=== PATIENT | female | born 1985 | race American Indian/Alaskan Native ===

== ENCOUNTER 2017-12-23 18:06 | Emergency (ER) | payer OTHER ==
[2017-12-23 18:24] VITALS: BP 120/78; PULSE 86; TEMP 98.6; BMI 38.2
--- NOTE | 2017-12-23 18:25 | PDOC ---
Rapid Medical Evaluation Chief Complaint: Palpitations Time Seen by Provider: 12/23/17 18:19 Medical Evaluation: Allergies Allergy/AdvReac Type Severity Reaction Status Date / Time Penicillins AdvReac Vomiting Verified 05/05/15 18:49 12/23/17 18:19 I have performed a brief in-person evaluation of this patient. The patient presents with a chief complaint of: palpitations since this am with URI/ cough, yellow/ green phlegm x 2 weeks, leg heaviness. Was seen at [facility] with orders for labs but did not complete labs, instead came to ER Pertinent physical exam findings: coarse insp exp I have ordered the following: EKG, CBC, CMP, T3, TSHUA, UCg, The patient will proceed to the ED for further evaluation. Discharge Disposition - Diagnosis Palpitations - Referrals - Patient Instructions - Post Discharge Activity
[2017-12-23 19:13] LABS: URINE APPEARANCE CLEAR; URINE BILIRUBIN NEGATIVE (<2.0 mg/dL); URINE COLOR COLORLESS; URINE GLUCOSE (UA) NEGATIVE (NEGATIVE); URINE KETONE NEGATIVE (NEGATIVE); URINE LEUK ESTERASE NEGATIVE (NEGATIVE); URINE NITRITE NEGATIVE (NEGATIVE); URINE PROTEIN NEGATIVE (NEGATIVE); URINE UROBILINOGEN NEGATIVE mg/dL (0.2-1.0)
[2017-12-23 19:27] LABS: BASO % 0.5 % (0-2.0); EOS % 0.7 % (0-4.5); HEMOGLOBIN 13.8 GM/dL (10.7-15.3); LYMPH % 24.6 % (8-40); MCH 26.6 pg (25.7-33.7); MEAN CELL VOLUME 80.8 fl (80-96); MEAN PLT VOLUME 8.7 fl (7.5-11.1); MONO % 5.3 % (3.8-10.2); NEUT % 68.9 % (42.8-82.8); PLATELET COUNT 344 K/MM3 (134-434); RDW 13.7 % (11.6-15.6); WHITE BLOOD COUNT 14.5 K/mm3 (4.0-10.0)
--- NOTE | 2017-12-23 19:28 | PDOC ---
History of Present Illness - General Chief Complaint: Palpitations Stated Complaint: PALPITATIONS,CARLITO HAND & LEG NUMBESS Time Seen by Provider: 12/23/17 18:19 - History of Present Illness Initial Comments: 12/23/17 19:27 32-year-old female without comorbidities presents for evaluations of 4 days of palpitations. Seen by her primary care physician today, blood work is ordered however she did not complete the blood work she reports to the ER for further evaluation and treatment of her palpitations Past History - Past Medical History Allergies/Adverse Reactions: Allergies Allergy/AdvReac Type Severity Reaction Status Date / Time Penicillins AdvReac Vomiting Verified 12/23/17 18:20 Home Medications: Ambulatory Orders NK [No Known Home Medication] 12/23/17 Asthma: No Cancer: No Cardiac Disorders: No COPD: No Diabetes: No HTN: No Seizures: No Thyroid Disease: No - Suicide/Smoking/Psychosocial Hx Smoking History: Never smoked Have you smoked in the past 12 months: No Hx Alcohol Use: No Drug/Substance Use Hx: No Substance Use Type: None Hx Substance Use Treatment: No Review of Systems - Review of Systems Cardiac (ROS): Yes: Palpitations. No: Chest Pain *Physical Exam - Vital Signs Last Vital Signs Temp Pulse Resp BP Pulse Ox 98.6 F 86 16 120/78 100 12/23/17 18:21 12/23/17 18:21 12/23/17 18:21 12/23/17 18:21 12/23/17 18:21 - Physical Exam Comments: 12/23/17 19:27 HEAD: NC/AT EYES: Conjuntiva clear Ears: Canals and TM's normal NOSE: No d/c THROAT: Moist mucous membrances, oral pharanx clear, uvula midline NECK: Supple without adenopathy CARDIAC: S1 S2 LUNGS: CTA Full and Equal breath sounds ABDOMEN: Soft NT ND MS: Full ROM in all joints without edema NEUROLOGIC: No gross sensory or motor deficits, NVID SKIN: Normal color and temperature no lesions or rashes ED Treatment Course - LABORATORY CBC & Chemistry Diagram: 12/23/17 19:15 12/23/17 19:15 - ADDITIONAL ORDERS Additional order review: Laboratory Results 12/23/17 12/23/17 18:40 18:40 Urine Color Colorless Urine Appearance Clear Urine pH 6.0 Ur Specific [place] 1.001 L Urine Protein Negative Urine Glucose (UA) Negative Urine Ketones Negative Urine Blood 1+ H Urine Nitrite Negative Urine Bilirubin Negative Urine Urobilinogen Negative Ur Leukocyte Esterase Negative Urine WBC (Auto) <1 Urine RBC (Auto) 1 Urine HCG, Qual Negative Medical Decision Making - Medical Decision Making 12/23/17 19:27 EKG is normal, thyroid panel CBC and chemistry was ordered I will transfer to the main emergency room for further evaluation and treatment *DC/Admit/Observation/Transfer Diagnosis at time of Disposition: Palpitations - Referrals Referrals: Deyanira Marie DO [Primary Care Provider] - - Patient Instructions - Post Discharge Activity
[2017-12-23 19:51] LABS: ALBUMIN 4.1 g/dl (3.4-5.0); ALK PHOS 105 U/L (45-117); ANION GAP 9 MMOL/L (8-16); BILIRUBIN,TOTAL 0.2 mg/dL (0.2-1); BLOOD UREA NITROGEN 10 mg/dL (7-18); CHLORIDE 106 mmol/L (98-107); CO2 25 mmol/L (21-32); CREATININE 0.6 mg/dL (0.55-1.3); GLUCOSE,RANDOM 95 mg/dL (74-106); POTASSIUM 3.8 mmol/L (3.5-5.1); SGOT/AST 15 U/L (15-37); SGPT/ALT 23 U/L (13-61); SODIUM 140 mmol/L (136-145); TOT PROT 8.1 g/dl (6.4-8.2)
--- NOTE | 2017-12-23 19:52 | PDOC ---
History of Present Illness - History of Present Illness Initial Comments: 12/23/17 20:10 The patient is a 32 year old female, with a significant PMH of HLD who presents to the emergency department with leg heaviness and palpitations for the past two days. Patient describes the leg heaviness as localized from her bilateral knees to her thighs with associated numbness that is exacerbated with sitting down. Patient denies any urinary incontinence or back trauma. Patient admits to having an 18 [address] ride to [place] 2 weeks ago. Patient reports the palpitations worsened this morning and notices alleviation of her palpitations after drinking water. Patient also had a subjective feeling like she was going to pass out. Patient has been taking Tylenol for her symptoms with no relief. Patient saw her PCP today. Patient has an IUD in place, but is not on any other control. Patient has no cardiac history in her family. Patient reports recent cold 2 weeks ago. Patient is endorsing decreased appetite and diarrhea. The patient denies chest pain, shortness of breath, headache and dizziness. Denies fever, chills, nausea, vomit, and constipation. Denies dysuria, frequency, urgency and hematuria. Allergies: NKA Past surgical history: 2 c-sections Social history: No reported PCP: <Zehra Quarles - Last Filed: 12/23/17 20:18> - General History Source: Patient Exam Limitations: No Limitations <Elaine Garzon - Last Filed: 12/23/17 22:32> - General Chief Complaint: Palpitations Stated Complaint: PALPITATIONS,CARLITO HAND & LEG NUMBESS Time Seen by Provider: 12/23/17 18:19 Past History <Zehra Quarles - Last Filed: 12/23/17 20:18> - Past Medical History Asthma: No Cancer: No Cardiac Disorders: No COPD: No Diabetes: No HTN: No Seizures: No Thyroid Disease: No - Suicide/Smoking/Psychosocial Hx Smoking History: Never smoked Have you smoked in the past 12 months: No Hx Alcohol Use: No Drug/Substance Use Hx: No Substance Use Type: None Hx Substance Use Treatment: No <Elaine Garzon - Last Filed: 12/23/17 22:32> - Past Medical History Allergies/Adverse Reactions: Allergies Allergy/AdvReac Type Severity Reaction Status Date / Time Penicillins AdvReac Vomiting Verified 12/23/17 18:20 Home Medications: Ambulatory Orders NK [No Known Home Medication] 12/23/17 Review of Systems - Review of Systems Able to Perform ROS?: Yes Comments:: 12/23/17 20:21 ADULT ROS GENERAL/CONSTITUTIONAL: No fever or chills. No weakness. HEAD, EYES, EARS, NOSE AND THROAT: No change in vision. No ear pain or discharge. No sore throat. CARDIOVASCULAR: No chest pain or shortness of breath. (+) Palpitations. RESPIRATORY: No cough, wheezing, or hemoptysis. GASTROINTESTINAL: No nausea, vomiting, diarrhea or constipation. GENITOURINARY: No dysuria, frequency, or change in urination. MUSCULOSKELETAL: (+) Bilateral leg pain, and numbness. SKIN: No rash NEUROLOGIC: No headache, vertigo, loss of consciousness, or change in strength/ sensation. ENDOCRINE: No increased thirst. No abnormal weight change. HEMATOLOGIC/LYMPHATIC: No anemia, easy bleeding, or history of blood clots. ALLERGIC/IMMUNOLOGIC: No hives or skin allergy. <Zehra Quarles - Last Filed: 12/23/17 20:18> *Physical Exam - Vital Signs Last Vital Signs Temp Pulse Resp BP Pulse Ox 98.6 F 86 16 120/78 100 12/23/17 18:21 12/23/17 18:21 12/23/17 18:21 12/23/17 18:21 12/23/17 18:21 - Physical Exam Comments: 12/23/17 20:19 ADULT PE GENERAL: The patient is in no acute distress. HEAD: Normal with no signs of trauma. EYES: PERRLA, EOMI, sclera anicteric, conjunctiva clear. ENT: Ears normal, nares patent, oropharynx clear without exudates. Moist mucous membranes. NECK: Normal range of motion, supple without lymphadenopathy, JVD, or masses. No thyroidmegaly. No nodules. LUNGS: Breath sounds equal, clear to auscultation bilaterally. No wheezes, and no crackles. HEART:Regular rate and rhythm, normal S1 and S2 without murmur, rub or gallop. ABDOMEN: Soft, nontender, normoactive bowel sounds. No guarding, no rebound. No masses palpable. EXTREMITIES: Normal range of motion, no edema. No clubbing or cyanosis. No erythema, or tenderness. Strength is 5/5. Sensation is intact. MUSCULOSKELETAL: diffuse, lower thoracic tendernes (reportedly since high school.) No CVA tenderness. NEUROLOGICAL: Cranial nerves II through XII grossly intact. Normal speech. No focal neurological deficits. SKIN: Warm, Dry, normal turgor, no rashes or lesions noted. <Zehra Quarles - Last Filed: 12/23/17 20:18> - Vital Signs Last Vital Signs Temp Pulse Resp BP Pulse Ox 98.6 F 86 16 120/78 100 12/23/17 18:21 12/23/17 18:21 12/23/17 18:21 12/23/17 18:21 12/23/17 18:21 <Elaine Garzon - Last Filed: 12/23/17 22:32> ED Treatment Course - LABORATORY CBC & Chemistry Diagram: 12/23/17 19:15 12/23/17 19:15 - ADDITIONAL ORDERS Additional order review: Laboratory Results 12/23/17 12/23/17 12/23/17 19:15 19:15 18:40 Sodium 140 Potassium 3.8 Chloride 106 Carbon Dioxide 25 Anion Gap 9 BUN 10 Creatinine 0.6 Creat Clearance w eGFR > 60 Random Glucose 95 Calcium 9.0 Total Bilirubin 0.2 AST 15 ALT 23 Alkaline Phosphatase 105 Total Protein 8.1 Albumin 4.1 TSH 1.36 Resin T3 Uptake 27.9 L Urine Color Colorless Urine Appearance Clear Urine pH 6.0 Ur Specific [place] 1.001 L Urine Protein Negative Urine Glucose (UA) Negative Urine Ketones Negative Urine Blood 1+ H Urine Nitrite Negative Urine Bilirubin Negative Urine Urobilinogen Negative Ur Leukocyte Esterase Negative Urine WBC (Auto) <1 Urine RBC (Auto) 1 Urine HCG, Qual 12/23/17 18:40 Sodium Potassium Chloride Carbon Dioxide Anion Gap BUN Creatinine Creat Clearance w eGFR Random Glucose Calcium Total Bilirubin AST ALT Alkaline Phosphatase Total Protein Albumin TSH Resin T3 Uptake Urine Color Urine Appearance Urine pH Ur Specific [place] Urine Protein Urine Glucose (UA) Urine Ketones Urine Blood Urine Nitrite Urine Bilirubin Urine Urobilinogen Ur Leukocyte Esterase Urine WBC (Auto) Urine RBC (Auto) Urine HCG, Qual Negative 12/23/17 19:15 RBC 5.20 MCV 80.8 MCHC 33.0 RDW 13.7 MPV 8.7 Neutrophils % 68.9 D Lymphocytes % 24.6 D Monocytes % 5.3 Eosinophils % 0.7 Basophils % 0.5 <Zehra Quarles - Last Filed: 12/23/17 20:18> - LABORATORY CBC & Chemistry Diagram: 12/23/17 19:15 12/23/17 19:15 - ADDITIONAL ORDERS Additional order review: Laboratory Results 12/23/17 12/23/17 12/23/17 19:15 18:40 18:40 Sodium 140 Potassium 3.8 Chloride 106 Carbon Dioxide 25 Anion Gap 9 BUN 10 Creatinine 0.6 Creat Clearance w eGFR > 60 Random Glucose 95 Calcium 9.0 Total Bilirubin 0.2 AST 15 ALT 23 Alkaline Phosphatase 105 Total Protein 8.1 Albumin 4.1 Urine Color Colorless Urine Appearance Clear Urine pH 6.0 Ur Specific [place] 1.001 L Urine Protein Negative Urine Glucose (UA) Negative Urine Ketones Negative Urine Blood 1+ H Urine Nitrite Negative Urine Bilirubin Negative Urine Urobilinogen Negative Ur Leukocyte Esterase Negative Urine WBC (Auto) <1 Urine RBC (Auto) 1 Urine HCG, Qual Negative 12/23/17 19:15 RBC 5.20 MCV 80.8 MCHC 33.0 RDW 13.7 MPV 8.7 Neutrophils % 68.9 D Lymphocytes % 24.6 D Monocytes % 5.3 Eosinophils % 0.7 Basophils % 0.5 <Elaine Garzon - Last Filed: 12/23/17 22:32> Medical Decision Making - Medical Decision Making 12/23/17 20:29 Pt presents with palpitations No associated chest pain, shortness of breath Symptoms began 3 days ago, not persistent Symptoms also associated with leg weakness DD includes but is not limited to hyperthyroidism, electrolyte abnormality, ACS unlikely (no chest pain, no risk factors) PE (possible given recent drive from [place]) EKG: Twelve-lead EKG was performed and reviewed by me. There is normal sinus rhythm with a normal rate of 71 bpm. The axis is normal. The intervals are normal. There are no ST or T wave abnormalities. Impression: Normal twelve-lead EKG Laboratory Tests 12/23/17 12/23/17 12/23/17 18:40 18:40 19:15 WBC 14.5 H Hgb 13.8 Hct 42.0 D Plt Count 344 D BUN Creatinine TSH Resin T3 Uptake Urine Blood 1+ H Urine Nitrite Negative Ur Leukocyte Esterase Negative Urine HCG, Qual Negative 12/23/17 12/23/17 19:15 19:15 WBC Hgb Hct Plt Count BUN 10 Creatinine 0.6 TSH 1.36 Resin T3 Uptake 27.9 L Urine Blood Urine Nitrite Ur Leukocyte Esterase Urine HCG, Qual CXR pending D dimer pending TSH nml 12/23/17 20:32 12/23/17 21:19 CXR - no infiltrate seen D dimer was not run by the lab. When we inquired into the delay in results, they reported the specimen hemolyzed 12/23/17 22:28 Laboratory Tests 12/23/17 22:00 D-Dimer 495 Pt states she feels better Will discharge to home Pt given copies of all labs Follow up with PMD Return to the ER for any other concerns or complaints <Elaine Garzon - Last Filed: 12/23/17 22:32> *DC/Admit/Observation/Transfer - Attestations Scribe Attestion: 12/23/17 20:21 Documentation prepared by Zehra Quarles, acting as medical sales representative for Elaine Garzon MD. <Zehra Quarles - Last Filed: 12/23/17 20:18> - Discharge Dispostion Decision to Admit order: No <Elaine Garzon - Last Filed: 12/23/17 22:32> Diagnosis at time of Disposition: Palpitations - Discharge Dispostion Disposition: HOME Condition at time of disposition: Stable - Referrals Referrals: Deyanira Marie DO [Primary Care Provider] - - Patient Instructions Printed Discharge Instructions: DI for Palpitations Additional Instructions: Ms Mendez Thank you for coming in to the ER Please be sure to follow up with your primary care physician within 1 week Please review your results Your xray does not demonstrate a pneumonia (preliminary reading). We will call you if there are any new findings on the xray when re read in the morning Please consider downloading an mily on your phone OR getting a watch with heart rate monitor When you feel palpitations, you can check your heart rate. Please document this If you develop any new symptoms, please return to the ER for re evaluation - Post Discharge Activity Forms/Work/School Notes: Back to Work
--- NOTE | 2017-12-24 16:30 | EKG ---
Test Reason : Blood Pressure : / mmHG Vent. Rate : 071 BPM Atrial Rate : 071 BPM P-R Int : 120 ms QRS Dur : 094 ms QT Int : 388 ms P-R-T Axes : 029 006 019 degrees QTc Int : 421 ms NORMAL SINUS RHYTHM NORMAL ECG WHEN COMPARED WITH ECG OF 05-MAY-2015 18:41, NONSPECIFIC T WAVE ABNORMALITY, IMPROVED IN ANTEROLATERAL LEADS Confirmed by MD Damaris, Gabriel ([id number]) on 12/24/2017 4:30:06 PM Referred By: Confirmed By:Gabriel Ocampo MD
== END 2017-12-23 23:30 | disposition home or self-care (01) ==
LOC: JERFT 18:06 → JER 18:06
DX: R00.2 Palpitations (principal)
CPT/HCPCS: 36415; 71046-TC-FY; 80053; 81003; 81015; 84443; 84479; 84703; 85025; 85379; 93005; 93010; 99282-25

== ENCOUNTER 2018-09-08 09:53 | Emergency (ER) | payer OTHER | END 2018-09-08 15:25 | disposition home or self-care (01) | LOC: JER 09:53 ==